=== PATIENT | male | born 1970 | race Caucasian/White ===

== ENCOUNTER 2016-11-23 11:28 | Emergency (ER) | payer SELFPAY ==
[2016-11-23 11:37] VITALS: BP 143/92; BMI 29.8
[2016-11-23 12:14] LABS: BILIRUBIN,URINE 1+ (NEGATIVE); BLOOD/HEMOGLOBIN,URINE NEGATIVE (NEGATIVE); GLUCOSE, URINE NEGATIVE (NEGATIVE); KETONES,URINE 1+ (NEGATIVE); LEUKOCYTE ESTERASE ,URINE 1+ (NEGATIVE); NITRITES,URINE NEGATIVE (NEGATIVE); PH,URINE 6.5 (5.0 - 8.0); PROTEIN,URINE 2+ (NEGATIVE); UROBILINOGEN,URINE 2+ (NORMAL)
[2016-11-23] MEDS ORDERED: TORADOL 60 MG VIAL IM ONE (12:33)
[2016-11-23] MEDS ORDERED: PHENERGAN INJ 25 MG IM ONE (12:33)
[2016-11-23] MEDS ORDERED: TORADOL 60 MG VIAL ONE (12:37)
--- NOTE | 2016-11-23 12:37 | DR.ABDMALE ---
HPI - Time seen Time seen: 12:32 - PCP Primary Care Physician: MANDEEP - Complaint Chief Complaint Doctors Comments: Patient complains of right CVA and lower back pain that radiates to lower abdomen that has been hurting for three weeks intermittently. States the pain has gotten worst the past two days and he has had episodes of hematuria and has nocturia 2-3 times nightly. States the pain is worst when he ly down and seems to get better when he stands. States he is a patient of Dr. Bowman and has hypertension but has not had his blood pressure medicines in two months. Chief Complaint:: PT. C/O RIGHT LOWER QUADRANT & RIGHT FLANK PAIN THAT BEGAN ABOUT 3 WEEKS AGO BUT HAS WORSENED WITHIN THE LAST 3 DAYS, RAIDATING TO RIGHT SIDE OF BACK. PT. DENIES N/V/D. PT. DOES STATE THAT HIS URINE IS MILKY APPEARING WITH SOME BLOOD IN IT. - Reviewed Nurses Notes Review: Yes - Mode of arrival Mode of Arrival: Ambulatory - Timing Onset of Chief Complaint: 11/20/16 Came on: Gradually - Duration Duration: Constant How lon Duration: Weeks - Location Location: RUQ - Severity Severity: Moderate - Quality Quality: Sharp, Stabbing - Context Onset: Gradually History of: None - Modifying factors Worsening Factors: Position, Movement, Rest Improving Factors: Position (standing) - Associated signs and symptoms Associated Signs and Symptoms: Hematuria PMH - PMH Past Medical History: Yes Past Medical History: Hypertension Past Medical History Comment: DIVERTICULOSIS Past Surgical History: No Surgical History: No History - Family History History of Family Medical Conditions: Yes Family Medical History: Hypertension - Social History Does patient currently use any type of tobacco product: Yes Have you used tobacco products in the last 12 months: Yes Type of Tobacco Use: Cigarettes How many years tobacco product used: 20 Does any household member use tobacco: No Alcohol Use: None Do you use any recreational Drugs:: No Lives With: Family Lives Where: Home - infectious screening In the last 2 months have you had wt loss of >10#?: NO Have you had fever, night sweats or hemotysis?: No Have you traveled outside the country in the last 6 months?: No Isolation: Standard ROS - Review of Systems Constitutional: No Symptoms Reported. negative: See HPI, Chills, Diaphoresis, Fever, Malaise, Weakness, Irritable, Fatigue, Loss of Appetite, Other Eyes: No Symptoms Reported ENTM: No Symptoms Reported. negative: See HPI, Ear Pain, Ear Discharge, Pulling on Ears, Hearing Loss, Nose Pain, Nose Discharge, Epistaxis, Nose Congestion, Mouth Pain, Mouth Swelling, Loose Teeth, Drooling, Throat Pain, Throat Swelling, Ear Foreign Body Respiratoy: No Symptoms Reported Cardiovascular: No Symptoms Reported Gastrointestinal/Abdominal: No Symptoms Reported Genitourinary: Frequency, Hematuria Neurological: No Symptoms Reported Musculoskeletal: Back Pain, Right Integumentary: No Symptoms Reported. negative: See HPI, Change in Color, Change in Hair/Nails, Dryness, Lesions, Lumps, Rash, Itching, Wound, Bruises, Juandice, Other Hematologic/Lymphatic: No Symptoms Reported Endocrine: No Symptoms Reported Psychiatric: No Symptoms Reported PE - Vital Signs Vital Signs: Temp Pulse Resp BP BP Pulse Ox 11/23/16 11:32 99.3 F 97 H 16 143/92 98 11/02/15 04:00 107/70 107/70 - General Limitations: No Limitations General Appearance: Alert, In Distress (moderated distress) - Head Head Exam: Normal Inspection, Atraumatic, Normocephalic - Eyes Eye exam: Normal Appearance, PERRL, EOMI. negative: Scleral Icterus, Conjunctival Injection, Nystagmus, Miosis, Mydrasis, Periorbital Swelling, Periorbital Tenderness, Other - ENT ENT Exam: Normal Exam, Normal Oropharynx, Normal External Ear Exam, Mucous Membranes Moist, TM's Normal Bilaterally - Neck Neck Exam: Normal Inspection, Full ROM, Trachea Midline - Chest Chest Inspection: Normal Inspection, Symmetric Chest Wall Rise - Respiratory Respiratory Exam: Normal Lung Sounds Bilat Respiratory Exam: Bilateral Clear to Auscultation - Cardiovascular Cardiovascular Exam: Regular Rate, Normal Rhythm, Normal Heart Sounds. negative : Bradycardia, Tachycardia, Irregular Rhythm, Systolic Murmur, Diastolic Murmur , Rubs, Gallop, Clicks, JVD, +S1, +S2, +S3, +S4, Other - Abdominal Exam Abdominal Exam: Normal Inspection, Normal Bowel Sounds, Soft, Tenderness (RUQ tenderness; right mid back tenderness scapular area), Guarding Abdominal Tenderness: RUQ, LUQ, Moderate - Rectal Rectal Exam: Deferred - Back Back Exam: Normal Inspection, Full ROM, Tenderness, (R) CVA Tenderness - Extremeties Extremities Exam: Normal Inspection, Full ROM, Normal Capillary Refill. negative: Tenderness, Edema, Joint Swelling, Calf Tenderness, Other - Exam: Male: Deferred - Neurologic Neurological Exam: Alert, Oriented X3, CN II-XII Intact, Normal Gait, Reflexes Normal - Psychiatric Psychiatric Exam: Normal Affect, Normal Mood - Skin Skin Exam: Warm, Dry, Intact, Normal Color ROR - Labs Reviewed Laboratory Results Reviewed?: Yes (all labs and x-ray results reviewed and discussed with patient) Result Diagrams: 11/23/16 12:00 11/23/16 12:00 Laboratory: WBC 10.7 X10^3/uL (3.6-10.0) H 11/23/16 12:00 RBC 4.63 X10^6/uL (4.7-6.0) L 11/23/16 12:00 Hgb 14.9 g/dL (13.5-18.0) 11/23/16 12:00 Hct 42.5 % (42.0-54.0) 11/23/16 12:00 MCV 91.8 fL (80.0-100.0) 11/23/16 12:00 MCH 32.1 pg (27.0-34.0) 11/23/16 12:00 MCHC 34.9 g/dL (33.0-35.0) 11/23/16 12:00 RDW 12.8 % (11.6-16.5) 11/23/16 12:00 Plt Count 326 X10^3/uL (150.0-450.0) 11/23/16 12:00 MPV 7.5 fL (7.4-11.0) 11/23/16 12:00 Neut % 74.8 % (42.0-75.0) 11/23/16 12:00 Lymph % 18.9 % (21.0-51.0) L 11/23/16 12:00 [place] % 5.1 % (0.0-13.0) 11/23/16 12:00 Eos % 0.4 % (0.9-2.9) L 11/23/16 12:00 Baso % 0.8 % (0.2-1.0) 11/23/16 12:00 Neut # 8.0 x10^3/uL (2.2-4.8) H 11/23/16 12:00 Lymph # 2.0 X10^3/uL (1.3-2.9) 11/23/16 12:00 [place] # 0.6 x10^3/uL (0.3-0.8) 11/23/16 12:00 Eos # 0.0 x10^3/uL (0.0-0.2) 11/23/16 12:00 Baso # 0.1 X10^3/uL (0.0-0.1) 11/23/16 12:00 Absolute Nucleated RBC 0.0 /100WBC 11/23/16 12:00 Sodium 138 mmol/L (136-145) 11/23/16 12:00 Corrected Sodium 139 mmol/L (136-145) 11/23/16 12:00 Potassium 4.6 mmol/L (3.5-5.1) 11/23/16 12:00 Chloride 102 mmol/L (98-107) 11/23/16 12:00 Carbon Dioxide 25.2 mmol/L (21-32) 11/23/16 12:00 BUN 16 mg/dL (7-18) 11/23/16 12:00 Creatinine 1.37 mg/dL (0.70-1.30) H 11/23/16 12:00 Est GFR (MDRD) Af Amer > 60 (>60) 11/23/16 12:00 Est GFR (MDRD) Non-Af 59 (>60) 11/23/16 12:00 Glucose 141 mg/dL (65-99) H 11/23/16 12:00 Calcium 8.9 mg/dL (8.5-10.1) 11/23/16 12:00 Corrected Calcium TNP 11/23/16 12:00 Total Bilirubin 0.50 mg/dL (0.2-1.0) 11/23/16 12:00 AST 18 Units/L (15-37) 11/23/16 12:00 ALT 26 Units/L (12-78) 11/23/16 12:00 Alkaline Phosphatase 80 Units/L (46-116) 11/23/16 12:00 Total Protein 8.0 g/dL (6.4-8.2) 11/23/16 12:00 Albumin 3.5 g/dL (3.4-5.0) 11/23/16 12:00 Globulin 4.5 g/dL (2.5-4.5) 11/23/16 12:00 Albumin/Globulin Ratio 0.8 Ratio (1.1-2.1) L 11/23/16 12:00 Amylase 48 Units/L (25-115) 11/23/16 12:00 Lipase 119 Units/L (73-393) 11/23/16 12:00 Specimen Type Clean catch urine 11/23/16 11:57 Urine Color Yellow (YELLOW) 11/23/16 11:57 Urine Appearance Clear (CLEAR) 11/23/16 11:57 Urine pH 6.5 (5.0 - 8.0) 11/23/16 11:57 Ur Specific [place] 1.010 (1.000-1.030) 11/23/16 11:57 Urine Protein 2+ (NEGATIVE) 11/23/16 11:57 Urine Glucose (UA) Negative (NEGATIVE) 11/23/16 11:57 Urine Ketones 1+ (NEGATIVE) 11/23/16 11:57 Urine Occult Blood Negative (NEGATIVE) 11/23/16 11:57 Urine Nitrite Negative (NEGATIVE) 11/23/16 11:57 Urine Bilirubin 1+ (NEGATIVE) 11/23/16 11:57 Urine Urobilinogen 2+ (NORMAL) 11/23/16 11:57 Ur Leukocyte Esterase 1+ (NEGATIVE) 11/23/16 11:57 Urine RBC Rare /HPF (NEGATIVE) 11/23/16 11:57 Urine WBC Rare /HPF (NEGATIVE) 11/23/16 11:57 Ur Squamous Epith Cells Rare /HPF (NEGATIVE) 11/23/16 11:57 Urine Bacteria Negative /HPF (NEGATIVE) 11/23/16 11:57 Hyaline Casts Rare /LPF (NEGATIVE) 11/23/16 11:57 Ur Culture Indicated? No/not indicated 11/23/16 11:57 - XRAY XRAY Interpreted by: Radiologist (CT abdomen and pelvis: Diverticulosis in cecum and right colon. No acute disease) - Diagnosis Discharge Problem: Diverticulosis of colon, Hyperglycemia, Myalgia Abdominal pain Qualifiers: Abdominal location: right lower quadrant Qualified Code(s): R10.31 - Right lower quadrant pain - Discharge Plan Disposition: HOME, SELF-CARE Condition: Stable Prescriptions: Acetaminophen W/ Codeine [Tylenol/Codeine #3 300-30 mg] 1 tab PO Q4-6H PRN #30 tab PRN Reason: Pain Celecoxib [Celebrex] 200 mg PO DAILY #5 cap Ciprofloxacin HCl [CIPRO 500 MG TAB *] 500 mg PO Q12H #20 tab Cyclobenzaprine HCl [FLEXERIL 10 MG *] 10 mg PO TID #30 tab - Follow ups/Referrals Follow ups/Referrals: Ky Bowman [Primary Care Provider] - 3 days - Instructions Instructions: Muscle Pain, Adult, Abdominal Pain, Adult, [id number], Diverticulosis
[2016-11-23] MEDS ORDERED: PHENERGAN INJ 25 MG ONE (12:38)
[2016-11-23 12:40] LABS: BASOPHILS # (AUTO) 0.1 X10^3/uL (0.0-0.1); BASOPHILS % (AUTO) 0.8 % (0.2-1.0); EOSINOPHILS % (AUTO) 0.4 % (0.9-2.9); HEMATOCRIT 42.5 % (42.0-54.0); HEMOGLOBIN 14.9 g/dL (13.5-18.0); LYMPHOCYTES % (AUTO) 18.9 % (21.0-51.0); MEAN CORPUSCULAR HEMOGLOBIN 32.1 pg (27.0-34.0); MEAN CORPUSCULAR HGB CONC 34.9 g/dL (33.0-35.0); MEAN CORPUSCULAR VOLUME 91.8 fL (80.0-100.0); MEAN PLATELET VOLUME 7.5 fL (7.4-11.0); MONOCYTES # (AUTO) 0.6 x10^3/uL (0.3-0.8); MONOCYTES % (AUTO) 5.1 % (0.0-13.0); NEUTROPHILS % (AUTO) 74.8 % (42.0-75.0); PLATELET COUNT 326 X10^3/uL (150.0-450.0); RED BLOOD COUNT 4.63 X10^6/uL (4.7-6.0); RED CELL DISTRIBUTION WIDTH 12.8 % (11.6-16.5); WHITE BLOOD COUNT 10.7 X10^3/uL (3.6-10.0)
[2016-11-23 12:56] LABS: ALANINE AMINOTRANSFERASE 26 Units/L (12-78); ALBUMIN 3.5 g/dL (3.4-5.0); ALKALINE PHOSPHATASE 80 Units/L (46-116); AMYLASE 48 Units/L (25-115); ASPARTATE AMINO TRANSFERASE 18 Units/L (15-37); BLOOD UREA NITROGEN 16 mg/dL (7-18); CALCIUM 8.9 mg/dL (8.5-10.1); CARBON DIOXIDE 25.2 mmol/L (21-32); CHLORIDE 102 mmol/L (98-107); COR NA(FOR HYPERGLY) 139 mmol/L (136-145); CREATININE 1.37 mg/dL (0.70-1.30); GLUCOSE 141 mg/dL (65-99); LIPASE 119 Units/L (73-393); SODIUM 138 mmol/L (136-145); eGFR BLACK RACES > 60 (>60); eGFR NON BLACK RACES 59 (>60)
[2016-11-23 12:58] LABS: APPEARANCE,URINE CLEAR (CLEAR); BACTERIA,URINE NEGATIVE /HPF (NEGATIVE); COLOR,URINE YELLOW (YELLOW); HYALINE CASTS, URINE RARE /LPF (NEGATIVE); RBC,URINE RARE /HPF (NEGATIVE); SQUAMOUS EPITHELIAL CELL,UR RARE /HPF (NEGATIVE)
--- NOTE | 2016-11-23 13:28 | CT ---
HISTORY: Right lower quadrant and hematuria Study: CT abdomen and pelvis without contrast Comparison: July 10, 2015 Technique: Multiple axial images of the abdomen and pelvis were obtained from the lung bases to the pubic symph ysis without the administration of IV contrast. Sagittal and coronal reformations were provided. Findings: The visualized portions of the lung bases are unremarkable. The liver, spleen, pancreas, kidneys, a nd adrenal glands are unremarkable in their CT appearance. The gallbladder is unremarkable in its CT appearance. No significant mesenteric lymphadenopathy or stranding can be observed. No free fluid or free air is seen within the abdomen. The appendix is normal. No bowel wall thickening or bowel dilatation is present. There is diffuse colonic diverticulosis without stranding of fat planes.. Th e urinary bladder is grossly unremarkable. The bony structures are grossly intact. IMPRESSION: 1. Diverticulosis most prominent in the cecum and right colon. No acute disease. Reported By:
[2016-11-23] MEDS ORDERED: SOLU-MEDROL 125 MG VIAL IM ONE (13:51)
[2016-11-23] MEDS ORDERED: NORFLEX INJ IM ONE (13:51)
[2016-11-23] MEDS ORDERED: NORFLEX INJ ONE (14:03)
[2016-11-23] MEDS ORDERED: SOLU-MEDROL 125 MG VIAL ONE (14:03)
== END 2016-11-23 14:13 | disposition home or self-care (01) ==
LOC: ER 11:42
DX: K57.90 Diverticulosis of intestine, part unspecified, without perforation or abscess without bleeding (principal); R73.9 Hyperglycemia, unspecified; M79.1 Myalgia; R10.31 Right lower quadrant pain
CPT/HCPCS: 36415; 74176; 80053; 81001; 82150; 83690; 85025; 96372; 99283; J1885; J2360; J2550; J2930

== ENCOUNTER 2018-01-07 12:29 | Inpatient (IN) | payer SELFPAY ==
[2018-01-07 14:07] LABS: BASOPHILS # (AUTO) 0.1 X10^3/uL (0.0-0.1); BASOPHILS % (AUTO) 0.8 % (0.2-1.0); EOSINOPHILS # (AUTO) 0.1 x10^3/uL (0.0-0.2); EOSINOPHILS % (AUTO) 0.4 % (0.9-2.9); HEMATOCRIT 46.6 % (42.0-54.0); HEMOGLOBIN 16.4 g/dL (13.5-18.0); LYMPHOCYTES # (AUTO) 4.1 X10^3/uL (1.3-2.9); LYMPHOCYTES % (AUTO) 30.4 % (21.0-51.0); MEAN CORPUSCULAR HGB CONC 35.1 g/dL (33.0-35.0); MEAN CORPUSCULAR VOLUME 91.2 fL (80.0-100.0); MEAN PLATELET VOLUME 7.2 fL (7.4-11.0); MONOCYTES # (AUTO) 0.9 x10^3/uL (0.3-0.8); MONOCYTES % (AUTO) 6.4 % (0.0-13.0); NEUTROPHILS # (AUTO) 8.5 x10^3/uL (2.2-4.8); PLATELET COUNT 410 X10^3/uL (150.0-450.0); RED BLOOD COUNT 5.11 X10^6/uL (4.7-6.0); RED CELL DISTRIBUTION WIDTH 12.8 % (11.6-16.5); WHITE BLOOD COUNT 13.6 X10^3/uL (3.6-10.0)
[2018-01-07] MEDS: CIPRO IV 400 MG PREMIX* 400 MG/200 ML IV.SOLN. IV SCH ×2 (14:11→20:44)
[2018-01-07] MEDS: NS 1000 ML 1,000 ML IV SCH (14:11)
[2018-01-07] MEDS: COLACE CAP 100 MG PO SCH ×2 (14:11→20:44)
[2018-01-07 14:20] LABS: ALANINE AMINOTRANSFERASE 34 Units/L (12-78); ALBUMIN 3.6 g/dL (3.4-5.0); ALKALINE PHOSPHATASE 61 Units/L (46-116); ASPARTATE AMINO TRANSFERASE 22 Units/L (15-37); BLOOD UREA NITROGEN 19 mg/dL (7-18); CALCIUM 8.4 mg/dL (8.5-10.1); CARBON DIOXIDE 26.1 mmol/L (21-32); CHLORIDE 103 mmol/L (98-107); COR NA(FOR HYPERGLY) 136 mmol/L (136-145); SODIUM 136 mmol/L (136-145); TOTAL PROTEIN 7.8 g/dL (6.4-8.2); eGFR BLACK RACES 59 (>60); eGFR NON BLACK RACES 49 (>60)
[2018-01-07 14:32] VITALS: BMI 30.2
[2018-01-07] MEDS: MILK OF MAGNESIA PO SCH ×2 (16:51→20:44)
--- NOTE | 2018-01-07 17:54 | CT ---
HISTORY: Abdominal pain, history of diverticulitis, chronic kidney disease and hypertension Study: CT abdomen and pelvis with contrast Comparison: 11/23/2016 Technique: Multiple axial images of the abdomen and pelvis were obtained from the lung bases to the pubic symphy sis after the administration of IV contrast. Findings: The visualized portions of the lung bases are unremarkable. The liver, spleen, pancreas, kidneys, and adrenal glands are unremarkable in their CT appearance. The gallbladder is unremarkable in its CT appearance. No significant mesenteric lymphadenopathy or stra nding can be observed. No free fluid or free air is seen within the abdomen. No bowel wall thickeni ng or bowel dilatation is present. There are a few scattered colonic diverticuli without evidence of acute diverticulitis. The appendix is normal in appearance without inflammatory change. Incidental n ote is made of a fat containing umbilical hernia. The urinary bladder is grossly unremarkable. Evalu ation of bony structures demonstrates a chronic compression deformity involving the L1 vertebral body with near vertebra plana left anteriorly and leftward curvature of the lumbar spine. Multilevel lumb ar spondylosis is noted. IMPRESSION: 1. No acute intra-abdominal abnormality evident. 2. Scattered diverticulosis without evidence of acute diverticulitis. 3. Small fat containing umbilical hernia Reported By:
[2018-01-07] MEDS: DEMEROL INJ IVP PRN (20:57)
[2018-01-07] MEDS: PHENERGAN INJ 25 MG IV PRN (20:58)
[2018-01-08] MEDS: NS 1000 ML 1,000 ML IV SCH ×3 (01:27→13:14)
[2018-01-08] MEDS: DEMEROL INJ IVP PRN ×4 (03:11→20:14)
[2018-01-08 06:11] LABS: BASOPHILS # (AUTO) 0.1 X10^3/uL (0.0-0.1); BASOPHILS % (AUTO) 0.7 % (0.2-1.0); EOSINOPHILS # (AUTO) 0.1 x10^3/uL (0.0-0.2); EOSINOPHILS % (AUTO) 0.8 % (0.9-2.9); HEMATOCRIT 42.1 % (42.0-54.0); HEMOGLOBIN 14.8 g/dL (13.5-18.0); LYMPHOCYTES # (AUTO) 3.5 X10^3/uL (1.3-2.9); LYMPHOCYTES % (AUTO) 46.9 % (21.0-51.0); MEAN CORPUSCULAR HEMOGLOBIN 32.1 pg (27.0-34.0); MEAN CORPUSCULAR HGB CONC 35.2 g/dL (33.0-35.0); MEAN CORPUSCULAR VOLUME 91.3 fL (80.0-100.0); MEAN PLATELET VOLUME 7.3 fL (7.4-11.0); MONOCYTES # (AUTO) 0.5 x10^3/uL (0.3-0.8); MONOCYTES % (AUTO) 6.9 % (0.0-13.0); NEUTROPHILS # (AUTO) 3.3 x10^3/uL (2.2-4.8); NEUTROPHILS % (AUTO) 44.7 % (42.0-75.0); PLATELET COUNT 197 X10^3/uL (150.0-450.0); RED BLOOD COUNT 4.61 X10^6/uL (4.7-6.0); WHITE BLOOD COUNT 7.5 X10^3/uL (3.6-10.0)
[2018-01-08 06:19] LABS: ALANINE AMINOTRANSFERASE 28 Units/L (12-78); ALBUMIN 2.8 g/dL (3.4-5.0); ALKALINE PHOSPHATASE 49 Units/L (46-116); ASPARTATE AMINO TRANSFERASE 19 Units/L (15-37); BLOOD UREA NITROGEN 16 mg/dL (7-18); CALCIUM 7.8 mg/dL (8.5-10.1); CARBON DIOXIDE 23.7 mmol/L (21-32); CHLORIDE 106 mmol/L (98-107); COR CA(FOR HYPOALB) 8.8 mg/dL (8.5-10.1); CREATININE 1.26 mg/dL (0.70-1.30); SODIUM 136 mmol/L (136-145); TOTAL PROTEIN 6.4 g/dL (6.4-8.2); eGFR BLACK RACES > 60 (>60); eGFR NON BLACK RACES > 60 (>60)
[2018-01-08] MEDS ORDERED: DULCOLAX SUPPOSITORY 10 MG RECTAL ONE (09:21)
[2018-01-08] MEDS: MILK OF MAGNESIA PO SCH ×4 (09:30→20:13)
[2018-01-08] MEDS: CIPRO IV 400 MG PREMIX* 400 MG/200 ML IV.SOLN. IV SCH ×2 (09:30→20:13)
[2018-01-08] MEDS: COLACE CAP 100 MG PO SCH ×2 (09:30→20:13)
[2018-01-08] MEDS: BENTYL CAP 10 MG PO SCH ×4 (09:55→20:13)
[2018-01-08 10:40] LABS: BILIRUBIN,URINE NEGATIVE (NEGATIVE); BLOOD/HEMOGLOBIN,URINE NEGATIVE (NEGATIVE); GLUCOSE, URINE NEGATIVE (NEGATIVE); KETONES,URINE NEGATIVE (NEGATIVE); LEUKOCYTE ESTERASE ,URINE NEGATIVE (NEGATIVE); NITRITES,URINE NEGATIVE (NEGATIVE); PH,URINE 6.5 (5.0 - 8.0); PROTEIN,URINE NEGATIVE (NEGATIVE); UROBILINOGEN,URINE NORMAL (NORMAL)
[2018-01-08 11:01] LABS: APPEARANCE,URINE CLEAR (CLEAR); COLOR,URINE YELLOW (YELLOW)
[2018-01-08] MEDS: PHENERGAN INJ 25 MG IV PRN ×2 (13:14→20:14)
[2018-01-09] MEDS: NS 1000 ML 1,000 ML IV SCH ×5 (00:34→22:03)
[2018-01-09] MEDS: PHENERGAN INJ 25 MG IV PRN ×4 (00:35→22:03)
[2018-01-09] MEDS: DEMEROL INJ IVP PRN ×4 (00:35→22:04)
[2018-01-09 06:21] LABS: BASOPHILS # (AUTO) 0.1 X10^3/uL (0.0-0.1); BASOPHILS % (AUTO) 0.6 % (0.2-1.0); EOSINOPHILS # (AUTO) 0.1 x10^3/uL (0.0-0.2); EOSINOPHILS % (AUTO) 1.8 % (0.9-2.9); HEMATOCRIT 43.2 % (42.0-54.0); HEMOGLOBIN 15.1 g/dL (13.5-18.0); LYMPHOCYTES % (AUTO) 48.8 % (21.0-51.0); MEAN CORPUSCULAR HGB CONC 34.9 g/dL (33.0-35.0); MEAN CORPUSCULAR VOLUME 91.5 fL (80.0-100.0); MEAN PLATELET VOLUME 7.3 fL (7.4-11.0); MONOCYTES # (AUTO) 0.6 x10^3/uL (0.3-0.8); MONOCYTES % (AUTO) 7.2 % (0.0-13.0); NEUTROPHILS # (AUTO) 3.4 x10^3/uL (2.2-4.8); NEUTROPHILS % (AUTO) 41.6 % (42.0-75.0); PLATELET COUNT 342 X10^3/uL (150.0-450.0); RED BLOOD COUNT 4.72 X10^6/uL (4.7-6.0); RED CELL DISTRIBUTION WIDTH 12.7 % (11.6-16.5); WHITE BLOOD COUNT 8.3 X10^3/uL (3.6-10.0)
[2018-01-09 06:51] LABS: ALANINE AMINOTRANSFERASE 28 Units/L (12-78); ALBUMIN 2.9 g/dL (3.4-5.0); ALKALINE PHOSPHATASE 48 Units/L (46-116); ASPARTATE AMINO TRANSFERASE 19 Units/L (15-37); BLOOD UREA NITROGEN 11 mg/dL (7-18); CALCIUM 7.6 mg/dL (8.5-10.1); CARBON DIOXIDE 25.5 mmol/L (21-32); CHLORIDE 106 mmol/L (98-107); COR CA(FOR HYPOALB) 8.5 mg/dL (8.5-10.1); CREATININE 1.32 mg/dL (0.70-1.30); SODIUM 137 mmol/L (136-145); TOTAL PROTEIN 6.3 g/dL (6.4-8.2); eGFR BLACK RACES > 60 (>60); eGFR NON BLACK RACES > 60 (>60)
[2018-01-09] MEDS ORDERED: ULTRAM PO SCH (09:00)
[2018-01-09] MEDS: CIPRO IV 400 MG PREMIX* 400 MG/200 ML IV.SOLN. IV SCH ×2 (09:38→21:30)
[2018-01-09] MEDS: BENTYL CAP 10 MG PO SCH ×4 (09:38→21:30)
[2018-01-09] MEDS: COLACE CAP 100 MG PO SCH ×2 (09:38→21:30)
[2018-01-09] MEDS: FLOMAX PO SCH (09:39)
[2018-01-09] MEDS: MILK OF MAGNESIA PO SCH ×4 (09:39→21:30)
[2018-01-09] MEDS: LINZESS PO SCH (11:10)
[2018-01-09] MEDS: PERCOCET TAB 5/325 MG PO PRN (12:13)
--- NOTE | 2018-01-09 15:06 | RAD ---
Examination: KUB History: Constipation, chronic kidney disease Findings: There is nonobstructive gaseous distention of bowel primarily colon. No mass formation or a scites is demonstrated. A prominent calcification consistent with vascular origin noted in the left p henri. A scoliosis is present with nonacute compression deformity involving 1 or more lumbar vertebra e. Impression: No acute abnormality demonstrated in the abdomen. Mild nonobstructive intestinal distenti on. Reported By:
[2018-01-09] MEDS ORDERED: PROCARDIA XL PO SCH (21:00)
[2018-01-10] MEDS: NS 1000 ML 1,000 ML IV SCH ×2 (01:55→05:40)
[2018-01-10 07:36] LABS: BASOPHILS # (AUTO) 0.1 X10^3/uL (0.0-0.1); BASOPHILS % (AUTO) 0.6 % (0.2-1.0); EOSINOPHILS # (AUTO) 0.2 x10^3/uL (0.0-0.2); EOSINOPHILS % (AUTO) 1.8 % (0.9-2.9); HEMATOCRIT 44.4 % (42.0-54.0); HEMOGLOBIN 15.6 g/dL (13.5-18.0); LYMPHOCYTES # (AUTO) 3.8 X10^3/uL (1.3-2.9); LYMPHOCYTES % (AUTO) 34.6 % (21.0-51.0); MEAN CORPUSCULAR HEMOGLOBIN 32.2 pg (27.0-34.0); MEAN CORPUSCULAR HGB CONC 35.1 g/dL (33.0-35.0); MEAN CORPUSCULAR VOLUME 91.7 fL (80.0-100.0); MEAN PLATELET VOLUME 7.5 fL (7.4-11.0); MONOCYTES # (AUTO) 0.7 x10^3/uL (0.3-0.8); MONOCYTES % (AUTO) 6.1 % (0.0-13.0); NEUTROPHILS # (AUTO) 6.2 x10^3/uL (2.2-4.8); NEUTROPHILS % (AUTO) 56.9 % (42.0-75.0); PLATELET COUNT 351 X10^3/uL (150.0-450.0); RED BLOOD COUNT 4.84 X10^6/uL (4.7-6.0); RED CELL DISTRIBUTION WIDTH 12.6 % (11.6-16.5); WHITE BLOOD COUNT 10.9 X10^3/uL (3.6-10.0)
[2018-01-10] MEDS: PERCOCET TAB 5/325 MG PO PRN (07:41)
[2018-01-10 07:42] LABS: ALANINE AMINOTRANSFERASE 29 Units/L (12-78); ALKALINE PHOSPHATASE 51 Units/L (46-116); ASPARTATE AMINO TRANSFERASE 19 Units/L (15-37); BLOOD UREA NITROGEN 6 mg/dL (7-18); CALCIUM 7.5 mg/dL (8.5-10.1); CARBON DIOXIDE 23.8 mmol/L (21-32); CHLORIDE 107 mmol/L (98-107); COR CA(FOR HYPOALB) 8.3 mg/dL (8.5-10.1); CREATININE 1.33 mg/dL (0.70-1.30); SODIUM 139 mmol/L (136-145); TOTAL PROTEIN 6.5 g/dL (6.4-8.2); eGFR BLACK RACES > 60 (>60); eGFR NON BLACK RACES > 60 (>60)
[2018-01-10 09:09] VITALS: BP 99/69
[2018-01-10] MEDS: CIPRO IV 400 MG PREMIX* 400 MG/200 ML IV.SOLN. IV SCH (09:09)
[2018-01-10] MEDS: BENTYL CAP 10 MG PO SCH (09:29)
[2018-01-10] MEDS: FLOMAX PO SCH (09:29)
[2018-01-10] MEDS: LINZESS PO SCH (09:29)
[2018-01-10] MEDS: MILK OF MAGNESIA PO SCH (09:29)
[2018-01-10] MEDS: COLACE CAP 100 MG PO SCH (09:29)
--- NOTE | 2018-01-11 21:24 | DR.UPDATE ---
H&P Update History and Physical Update: WAS SEEN IN THE OFFICE TODAY. A H&P WAS COMPLETED PRIOR TO ADMISSION. PATIENT HAS BEEN SEEN AND EXAMINED WITH NO CHANGES NOTED TO H&P. Changes noted: NO Yes with the following:
--- NOTE | 2018-01-11 21:34 | PCM.PROG ---
Progress Note - Progress Note for Day of Date: 01/08/18 - Subjective Subjective: WAS ADMITTED FOR SUSPECTED DIVERTICULOSIS AND CONSTIPATION. TODAY, HE IS ALERT AND ORIENTED, LYING IN BED ON MORNING ROUNDS. HE CONTINUES WITH ABDOMINAL PAIN AND DENIES A SIGNIFICANT BOWEL MOVEMENT SINCE ADMISSION. EXAMINATION REVEALS A DISTENDED ABDOMEN WITH MILD, DIFFUSE TENDERNESS AND DECREASED BOWEL SOUNDS. HIS VITALS TODAY ARE 97.3-79-20-99%-123/ 82. HE IS HEMODYNAMICALLY STABLE TODAY. AN ABDOMEN/PELVIS CT WAS OBTAINED ON ADMISSION AND REVEALED NO ACUTE INTRA-ABDOMINAL ABNORMALITY EVIDENT. SCATTERED DIVERTICULOSIS WITHOUT EVIDENCE OF ACUTE DIVERTICULITIS. SMALL FAT CONTAINING UMBILICAL HERNIA. TODAY, WE WILL ADMINISTER A DULCOLOX SUPPOSITORY AND START BENTYL 20MG PO QID. OTHERWISE, WE WILL CONTINUE WITH CURRENT PLAN OF CARE AND CONTINUE TO MONITOR PATIENT. - Past Medical Family Social History Past Med/Fam/Surg Hx: No changes since H&P Allergies: Allergies No Known Drug Allergies Allergy (Verified 01/07/18 14:25) - Review of Systems ROS: No change since H&P - Vital Signs and I&O's Vital Signs: Temperature 97.2 F Pulse Rate [Brachial] 84 Respiratory Rate 20 Blood Pressure [Right Arm] 99/69 Blood Pressure 143/92 O2 Sat by Pulse Oximetry 96 Intake and Output: Intake & Output 01/09/18 01/10/18 01/11/18 01/12/18 11:59 11:59 11:59 11:59 Intake Total 3689 4289 Output Total 0 Balance 3689 4289 - Physical Exam Oriented: Normal Eyes: Normal Ear: Normal Nose: Normal Throat: Normal Respiratory: Normal Cardiovascular: Normal : Normal Auscultation: Bowel Sounds: Decreased Palpation: Normal Tenderness: Diffuse, Mild. negative: Rebound, Guarding, Rigidity Skin: Normal Musculoskeletal: Normal Psychiatric: Normal Mood Description: Calm Affect: Normal Speech Pattern: Clear, Appropriate - Laboratory and Diagnostics Result Diagrams: 01/10/18 06:38 01/10/18 06:38 Labs: 01/08/18 10:18 Urine,Clean Catch Urine Culture - Final Laboratory WBC 10.9 X10^3/uL (3.6-10.0) H 01/10/18 06:38 RBC 4.84 X10^6/uL (4.7-6.0) 01/10/18 06:38 Hgb 15.6 g/dL (13.5-18.0) 01/10/18 06:38 Hct 44.4 % (42.0-54.0) 01/10/18 06:38 MCV 91.7 fL (80.0-100.0) 01/10/18 06:38 MCH 32.2 pg (27.0-34.0) 01/10/18 06:38 MCHC 35.1 g/dL (33.0-35.0) H 01/10/18 06:38 RDW 12.6 % (11.6-16.5) 01/10/18 06:38 Plt Count 351 X10^3/uL (150.0-450.0) 01/10/18 06:38 MPV 7.5 fL (7.4-11.0) 01/10/18 06:38 Neut % (Auto) 56.9 % (42.0-75.0) 01/10/18 06:38 Lymph % (Auto) 34.6 % (21.0-51.0) 01/10/18 06:38 [place] % (Auto) 6.1 % (0.0-13.0) 01/10/18 06:38 Eos % (Auto) 1.8 % (0.9-2.9) 01/10/18 06:38 Baso % (Auto) 0.6 % (0.2-1.0) 01/10/18 06:38 Neut # (Auto) 6.2 x10^3/uL (2.2-4.8) H 01/10/18 06:38 Lymph # (Auto) 3.8 X10^3/uL (1.3-2.9) H 01/10/18 06:38 [place] # (Auto) 0.7 x10^3/uL (0.3-0.8) 01/10/18 06:38 Eos # (Auto) 0.2 x10^3/uL (0.0-0.2) 01/10/18 06:38 Baso # (Auto) 0.1 X10^3/uL (0.0-0.1) 01/10/18 06:38 Absolute Nucleated RBC 0.2 /100WBC 01/10/18 06:38 Sodium 139 mmol/L (136-145) 01/10/18 06:38 Corrected Sodium TNP 01/10/18 06:38 Potassium 4.3 mmol/L (3.5-5.1) 01/10/18 06:38 Chloride 107 mmol/L (98-107) 01/10/18 06:38 Carbon Dioxide 23.8 mmol/L (21-32) 01/10/18 06:38 BUN 6 mg/dL (7-18) L 01/10/18 06:38 Creatinine 1.33 mg/dL (0.70-1.30) H 01/10/18 06:38 Est GFR (MDRD) Af Amer > 60 (>60) 01/10/18 06:38 Est GFR (MDRD) Non-Af > 60 (>60) 01/10/18 06:38 Glucose 81 mg/dL (65-99) 01/10/18 06:38 Calcium 7.5 mg/dL (8.5-10.1) L 01/10/18 06:38 Corrected Calcium 8.3 mg/dL (8.5-10.1) L 01/10/18 06:38 Total Bilirubin 0.50 mg/dL (0.2-1.0) 01/10/18 06:38 AST 19 Units/L (15-37) 01/10/18 06:38 ALT 29 Units/L (12-78) 01/10/18 06:38 Alkaline Phosphatase 51 Units/L (46-116) 01/10/18 06:38 Total Protein 6.5 g/dL (6.4-8.2) 01/10/18 06:38 Albumin 3.0 g/dL (3.4-5.0) L 01/10/18 06:38 Globulin 3.5 g/dL (2.5-4.5) 01/10/18 06:38 Albumin/Globulin Ratio 0.9 Ratio (1.1-2.1) L 01/10/18 06:38 Specimen Type Clean catch urine 01/08/18 10:18 Urine Color Yellow (YELLOW) 01/08/18 10:18 Urine Appearance Clear (CLEAR) 01/08/18 10:18 Urine pH 6.5 (5.0 - 8.0) 01/08/18 10:18 Ur Specific [place] 1.010 (1.000-1.030) 01/08/18 10:18 Urine Protein Negative (NEGATIVE) 01/08/18 10:18 Urine Glucose (UA) Negative (NEGATIVE) 01/08/18 10:18 Urine Ketones Negative (NEGATIVE) 01/08/18 10:18 Urine Occult Blood Negative (NEGATIVE) 01/08/18 10:18 Urine Nitrite Negative (NEGATIVE) 01/08/18 10:18 Urine Bilirubin Negative (NEGATIVE) 01/08/18 10:18 Urine Urobilinogen Normal (NORMAL) 01/08/18 10:18 Ur Leukocyte Esterase Negative (NEGATIVE) 01/08/18 10:18 - Plan (1) Abdominal pain Status: Acute Qualifiers: Abdominal location: generalized Qualified Code(s): R10.84 - Generalized abdominal pain Plan: PAIN CONTROL, CONTINUE TO MONITOR (2) Chronic idiopathic constipation Status: Acute Plan: DULCOLOX SUPPOSITORY, MIRALAX DAILY, MILK OF MAGNESIA, COLACE (3) Diverticulosis of colon Status: Acute Qualifiers: Diverticulosis bleeding: diverticulosis without bleeding Qualified Code(s) : K57.30 - Diverticulosis of large intestine without perforation or abscess without bleeding Plan: CIPRO 400MG IV DAILY, CONTINUE TO MONITOR
--- NOTE | 2018-01-11 21:35 | PCM.PROG ---
Progress Note - Progress Note for Day of Date: 01/09/18 - Subjective Subjective: WAS ADMITTED FOR SUSPECTED DIVERTICULOSIS AND CONSTIPATION. TODAY, HE IS ALERT AND ORIENTED, LYING IN BED ON MORNING ROUNDS. HE CONTINUES WITH ABDOMINAL PAIN AND CONTINUES TO DENY A SIGNIFICANT BOWEL MOVEMENT SINCE ADMISSION. HE REPORTS SLIGHT IMPROVEMENT IN PAIN SINCE ADMISSION. EXAMINATION REVEALS A DISTENDED ABDOMEN WITH MILD, DIFFUSE TENDERNESS AND DECREASED BOWEL SOUNDS. HIS VITALS TODAY ARE 97.7-95-19-98%-124/ 75. HE IS HEMODYNAMICALLY STABLE TODAY. TODAY, WE WILL START LINZESS 145MG PO DAILY. OTHERWISE, WE WILL CONTINUE WITH CURRENT PLAN OF CARE AND CONTINUE TO MONITOR PATIENT. - Past Medical Family Social History Past Med/Fam/Surg Hx: No changes since H&P Allergies: Allergies No Known Drug Allergies Allergy (Verified 01/07/18 14:25) - Review of Systems ROS: No change since H&P - Vital Signs and I&O's Vital Signs: Temperature 97.2 F Pulse Rate [Brachial] 84 Respiratory Rate 20 Blood Pressure [Right Arm] 99/69 Blood Pressure 143/92 O2 Sat by Pulse Oximetry 96 Intake and Output: Intake & Output 01/09/18 01/10/18 01/11/18 01/12/18 11:59 11:59 11:59 11:59 Intake Total 3689 4289 Output Total 0 Balance 3689 4289 - Physical Exam Oriented: Normal Eyes: Normal Ear: Normal Nose: Normal Throat: Normal Respiratory: Normal Cardiovascular: Normal : Normal Auscultation: Bowel Sounds: Decreased Palpation: Normal Tenderness: Diffuse, Mild. negative: Rebound, Guarding, Rigidity Skin: Normal Musculoskeletal: Normal Psychiatric: Normal Mood Description: Calm Affect: Normal Speech Pattern: Clear, Appropriate - Laboratory and Diagnostics Result Diagrams: 01/10/18 06:38 01/10/18 06:38 Labs: 01/08/18 10:18 Urine,Clean Catch Urine Culture - Final Laboratory WBC 10.9 X10^3/uL (3.6-10.0) H 01/10/18 06:38 RBC 4.84 X10^6/uL (4.7-6.0) 01/10/18 06:38 Hgb 15.6 g/dL (13.5-18.0) 01/10/18 06:38 Hct 44.4 % (42.0-54.0) 01/10/18 06:38 MCV 91.7 fL (80.0-100.0) 01/10/18 06:38 MCH 32.2 pg (27.0-34.0) 01/10/18 06:38 MCHC 35.1 g/dL (33.0-35.0) H 01/10/18 06:38 RDW 12.6 % (11.6-16.5) 01/10/18 06:38 Plt Count 351 X10^3/uL (150.0-450.0) 01/10/18 06:38 MPV 7.5 fL (7.4-11.0) 01/10/18 06:38 Neut % (Auto) 56.9 % (42.0-75.0) 01/10/18 06:38 Lymph % (Auto) 34.6 % (21.0-51.0) 01/10/18 06:38 [place] % (Auto) 6.1 % (0.0-13.0) 01/10/18 06:38 Eos % (Auto) 1.8 % (0.9-2.9) 01/10/18 06:38 Baso % (Auto) 0.6 % (0.2-1.0) 01/10/18 06:38 Neut # (Auto) 6.2 x10^3/uL (2.2-4.8) H 01/10/18 06:38 Lymph # (Auto) 3.8 X10^3/uL (1.3-2.9) H 01/10/18 06:38 [place] # (Auto) 0.7 x10^3/uL (0.3-0.8) 01/10/18 06:38 Eos # (Auto) 0.2 x10^3/uL (0.0-0.2) 01/10/18 06:38 Baso # (Auto) 0.1 X10^3/uL (0.0-0.1) 01/10/18 06:38 Absolute Nucleated RBC 0.2 /100WBC 01/10/18 06:38 Sodium 139 mmol/L (136-145) 01/10/18 06:38 Corrected Sodium TNP 01/10/18 06:38 Potassium 4.3 mmol/L (3.5-5.1) 01/10/18 06:38 Chloride 107 mmol/L (98-107) 01/10/18 06:38 Carbon Dioxide 23.8 mmol/L (21-32) 01/10/18 06:38 BUN 6 mg/dL (7-18) L 01/10/18 06:38 Creatinine 1.33 mg/dL (0.70-1.30) H 01/10/18 06:38 Est GFR (MDRD) Af Amer > 60 (>60) 01/10/18 06:38 Est GFR (MDRD) Non-Af > 60 (>60) 01/10/18 06:38 Glucose 81 mg/dL (65-99) 01/10/18 06:38 Calcium 7.5 mg/dL (8.5-10.1) L 01/10/18 06:38 Corrected Calcium 8.3 mg/dL (8.5-10.1) L 01/10/18 06:38 Total Bilirubin 0.50 mg/dL (0.2-1.0) 01/10/18 06:38 AST 19 Units/L (15-37) 01/10/18 06:38 ALT 29 Units/L (12-78) 01/10/18 06:38 Alkaline Phosphatase 51 Units/L (46-116) 01/10/18 06:38 Total Protein 6.5 g/dL (6.4-8.2) 01/10/18 06:38 Albumin 3.0 g/dL (3.4-5.0) L 01/10/18 06:38 Globulin 3.5 g/dL (2.5-4.5) 01/10/18 06:38 Albumin/Globulin Ratio 0.9 Ratio (1.1-2.1) L 01/10/18 06:38 Specimen Type Clean catch urine 01/08/18 10:18 Urine Color Yellow (YELLOW) 01/08/18 10:18 Urine Appearance Clear (CLEAR) 01/08/18 10:18 Urine pH 6.5 (5.0 - 8.0) 01/08/18 10:18 Ur Specific [place] 1.010 (1.000-1.030) 01/08/18 10:18 Urine Protein Negative (NEGATIVE) 01/08/18 10:18 Urine Glucose (UA) Negative (NEGATIVE) 01/08/18 10:18 Urine Ketones Negative (NEGATIVE) 01/08/18 10:18 Urine Occult Blood Negative (NEGATIVE) 01/08/18 10:18 Urine Nitrite Negative (NEGATIVE) 01/08/18 10:18 Urine Bilirubin Negative (NEGATIVE) 01/08/18 10:18 Urine Urobilinogen Normal (NORMAL) 01/08/18 10:18 Ur Leukocyte Esterase Negative (NEGATIVE) 01/08/18 10:18 - Plan (1) Abdominal pain Status: Acute Qualifiers: Abdominal location: generalized Qualified Code(s): R10.84 - Generalized abdominal pain Plan: PAIN CONTROL, CONTINUE TO MONITOR (2) Chronic idiopathic constipation Status: Acute Plan: LINZESS 145MG PO DAILY, MIRALAX DAILY, MILK OF MAGNESIA, COLACE (3) Diverticulosis of colon Status: Acute Qualifiers: Diverticulosis bleeding: diverticulosis without bleeding Qualified Code(s) : K57.30 - Diverticulosis of large intestine without perforation or abscess without bleeding Plan: CIPRO 400MG IV DAILY, CONTINUE TO MONITOR
== END 2018-01-10 10:00 | disposition home or self-care (01) | DRG 392 ==
LOC: OBS 12:29 → UNDOADMIN 12:29 → OBS 13:31
PROVIDERS: ADMIT Internal Medicine; ATTEND Internal Medicine
DX: K57.30 Diverticulosis of large intestine without perforation or abscess without bleeding (principal); K59.04 Chronic idiopathic constipation
CPT/HCPCS: 36415; 74018; 74177; 80053; 81003; 85025; 87086; A4216; A4222; J0744; J2175; J2550